=== PATIENT | male | born 2000 | race Caucasian/White ===

== ENCOUNTER 2019-10-21 16:18 | Emergency (ER) | payer OTHER, SELFPAY ==
[2019-10-21 16:26] VITALS: BP 108/56; PULSE 79; RESP 18; TEMP 36.1; O2SAT 99
--- NOTE | 2019-10-21 16:30 | ED.WOUNDLAC ---
HPI - Wound/Laceration General Chief Complaint: Wound/Laceration Stated Complaint: FINGER LACERATION Time Seen by Provider: 10/21/19 16:30 Source: patient and RN notes reviewed Mode of arrival: ambulatory Limitations: no limitations History of Present Illness HPI narrative: 19 male presents with concern for injury to the tip of the second digit of his right hand. 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 Reports he put clotting powder on the finger and after about 10 minutes the bleeding stopped. He denies musculoskeletal injury, pain. He last had a tetanus vaccine 6 years ago. Extremity Location: Right: hand Related Data Home Medications Medication Instructions Recorded Confirmed No Home Medications 10/21/19 10/21/19 Allergies Allergy/AdvReac Type Severity Reaction Status Date / Time Penicillins Allergy Unknown Rash Unverified 10/21/19 16:26 Review of Systems Review of Systems: Narrative: CONSTITUTIONAL: Denies malaise, chills, sweats, or fever. SKIN: Reports skin injury to the tip of the second digit of the right hand MUSCULOSKELETAL: Denies musculoskeletal pain NEUROLOGIC: Denies numbness, weakness. All systems reviewed & are unremarkable except as noted in HPI and below PMFSH Comments At time of signature, agree with nursing past medical, surgical, social and family history. There is no relevant family history pertinent to the presenting complaint Exam Narrative: Exam Narrative: GENERAL: Well-appearing, well-nourished, and in no acute distress. HEAD: Normocephalic, atraumatic. EYES: PERRLA, conjunctivae clear NECK: Supple. CHEST: Speaks in full sentences. No respiratory distress. HEART: Regular rate and rhythm. Normal and equal peripheral pulses. EXTREMITIES: Right second digit of hand have normal strength and sensation. 5/5 strength with digit flexion, extension. Range of motion normal. No clubbing, cyanosis, or edema noted. No tenderness. Normal digital cascade with flexion of fingers, median, ulnar and radial nerve intact. Normal sensation of each side of finger. Can perform 'okay' sign, 'cross over finger test of index and middle fingers' and 'thumbs up' sign. No scissoring. Normal thumb opposition. Good capillary refill and radial pulse. Distal capillary refill ?3 seconds. SKIN: Avulsion approximately 0.5 cm in diameter noted to the tip of the second digit of the right hand, slightly into the tip of the nailbed. Tissue bed is beefy red, no bleeding currently noted. No surrounding erythema, edema, induration NEURO: Alert and oriented x3. PSYCH: Normal mood and affect Course Course Emergency Course: Surgicel applied to wound to facilitate ongoing hemostasis, dressing applied. Patient is aware of diagnosis, understands and agrees to treatment plan. Anticipatory guidance given. Patient agrees to follow-up as directed and is aware of reasons to seek care at the emergency department. Portions of this record may have been created with voice recognition software Vital Signs Vital signs: Vital Signs Temperature 97.0 F L 10/21/19 16:26 Pulse Rate 79 10/21/19 16:26 Respiratory Rate 18 10/21/19 16:26 Blood Pressure 108/56 L 10/21/19 16:26 Pulse Oximetry 99 10/21/19 16:26 Temperature 97.0 F L 10/21/19 16:26 Pulse Rate 79 10/21/19 16:26 Respiratory Rate 18 10/21/19 16:26 Blood Pressure 108/56 L 10/21/19 16:26 Pulse Oximetry 99 10/21/19 16:26 Reviewed. MDM - Wound/Laceration MDM Narrative Medical decision making narrative: Exam findings show no acute concerns or changes; patient is non-toxic appearing and is in no distress. Patient is appropriate for outpatient treatment and follow-up. Differential Diagnosis Differential diagnosis: Likely laceration, abrasion and avulsion of skin Critical Care Time Critical Care Time Critical Care Time: No Discharge Plan Discharge Clinical Impression: Avulsion of skin Patient Disposition: Home, Self-Care Condition:
[2019-10-21] MEDS: TETANUS,DIPHTHERIA,AC PERTUSSIS ADULT (0.5 ML) BOOSTRIX IM (17:01)
== END 2019-10-21 17:15 | disposition home or self-care (01) ==
PROVIDERS: Emergency Provider Nurse Practitioner; PCP Pediatrics
DX: S61.200A Unspecified open wound of right index finger without damage to nail, initial encounter (principal); W29.0XXA Contact with powered kitchen appliance, initial encounter; Z23 Encounter for immunization
CPT/HCPCS: 90471; 90715; 99212; G0463

== ENCOUNTER → 2020-06-13 13:20 | Outpatient (CLI) | payer OTHER, SELFPAY ==
--- NOTE | ~2020-06-13 | XR_ITS ---
EXAMINATION: XR hand LT min 3V, XR wrist LT min 3V DATE: 06/13/2020 13:37 INDICATION: Left wrist trauma with pain at the ulnar side of the left wrist. TECHNIQUE: 1. Posteroanterior, ulnar deviation, oblique, and lateral views of the left wrist were obtained. 2. Dorsal palmar, oblique and lateral views of the left hand were obtained. COMPARISON: None. FINDINGS: Alignment of the left hand and wrist are normal. No fracture identified. Joint spaces are normal. C hronic erosions with sclerotic margins at the tip of the ulnar styloid process and at the dorsal radi al aspect of the head of the second metatarsal. No focal soft tissue swelling. IMPRESSION: 1. No acute osseous abnormality. 2. Chronic erosions of indeterminate etiology at the head of the left second metatarsal and tip of th e ulnar styloid process. Reviewed, dictated and finalized at location B. [facility] IMPRESSION: 1. No acute osseous abnormality. 2. Chronic erosions of indeterminate etiology at the head of the left second me tatarsal and tip of the ulnar styloid process.
== END ==
PROVIDERS: PCP Pediatrics; Visit Provider Pediatrics
DX: S69.92XA Unspecified injury of left wrist, hand and finger(s), initial encounter (principal)
CPT/HCPCS: 73110; 73130

== ENCOUNTER → 2020-07-15 13:08 | Outpatient (CLI) | payer OTHER, SELFPAY ==
--- NOTE | ~2020-07-15 | XR_ITS ---
EXAMINATION: XR fl inj wrist LT for MR/CT DATE: 07/15/2020 14:35 INDICATION: Ulnar-sided left wrist pain TECHNIQUE: A time-out was performed to verify the patient's name, date of , and procedure to b e performed. The procedure including the risks, benefits, and alternatives was discussed with the pat ient. Risks discussed included bleeding and infection. The patient understood the risks and agreed to proceed. The skin dorsal to the radioscaphoid articulation of the left wrist joint was prepped and draped in usual sterile fashion. Anesthetic was administered with 1% lidocaine subcutaneously. A 25 G needle was advanced under fluoroscopic guidance into the joint. Injection of 0.2 mL of Omnipaque 240 confirmed intra-articular position of the needle. Subsequently, injectate consisting of 3 mL of 2:1:1 mixture of sterile saline:Omnipaque 240:1% lidocaine mixed 200:1 with 529 mg/mL Multihance gado linium contrast was injected with intra-articular administration confirmed with intermittent fluorosc opy. A combined total of 1 mL of Omnipaque 240 was utilized. The needle was removed and the entry sit e was cleaned and dressed. There were no immediate complications. Fluoroscopy exposure time was 1.3 minutes. The total number of images was 134. FINDINGS: Real-time fluoroscopy demonstrates the needle in the left wrist joint. There is no evident extension of contrast into either the distal radioulnar joint to suggest a full-thickness tear of the triangular fibrocartilage complex or into the wrist joint to suggest a full-thickness tear of either the scapholunate or lunotriquetral ligaments. IMPRESSION: 1. Successful left wrist joint injection of dilute gadolinium contrast mixture which will be dictated separately. Reviewed, dictated and finalized at location A.
--- NOTE | ~2020-07-15 | MR_ITS ---
EXAMINATION: MR wrist LT w con DATE: 07/15/2020 15:07 INDICATION: Left wrist pain TECHNIQUE: Magnetic resonance imaging (MRI) of the left wrist was performed without intravenous contr ast. Sequences performed include axial PD-weighted FSE and PD-weighted FS FSE, coronal PD-weighted FS FSE and T1-weighted SE, and sagittal PD-weighted FS FSE and PD-weighted FSE. COMPARISON: None FINDINGS: Intrinsic ligaments: The scapholunate and lunotriquetral ligaments are normal. Triangular fibrocartilage complex (TFCC): There is small region of focal thinning and mild increased signal of less than fluid intensity and wi thout contrast enhancement along the radial side of the triangular fibrocartilage complex suggesting mild scarring related to a chronic partial tear near the radial attachment of the central fiber carti laginous disc of the triangular fiber cartilage complex. The foveal attachment is normal. There is a shallow concavity with smooth margins along the ulnar side of the distal articular surface of the tri angular fibrocartilage complex near its ulnar styloid attachment suggesting a chronic partial thickne ss tear. Again seen is an erosion along the radial aspect of the ulnar styloid process which is fille d with intermediate signal intensity noncontrast enhancing soft tissue. The ulnar collateral ligament and lunotriquetral ligament are normal. Extensor wrist: Extensor tendons of the wrist are normal. No tenosynovitis. Flexor wrist: The flexor tendons of the wrist are normal. No abnormality in the carpal tunnel with normal median n erve. Guyon's canal: Guyon's canal including the ulnar nerve and artery are normal. Bones/other: Normal marrow signal. No fracture, erosions, avascular necrosis or abnormal marrow replacing process. Joint spaces are normal with no focal cartilage defects appreciated. IMPRESSION: 1. Chronic partial tear involving the ulnar styloid attachment of the triangular fibrocartilage compl ex and mild attenuation and increased signal along the radial side of the central fibrocartilaginous disc of the triangular fibrocartilage complex which does not fill with contrast consistent with likel y scarring related to old healed partial tear. Reviewed, dictated and finalized at location A. IMPRESSION: 1. Chronic partial tear involving the ulnar styloid attachment of the triangula r fibrocartilage complex and mild attenuation and increased signal along the ra dial side of the central fibrocartilaginous disc of the triangular fibrocartila ge complex which does not fill with contrast consistent with likely scarring re lated to old healed partial tear.
== END ==
PROVIDERS: Visit Provider Orthopaedic Surgery
DX: M25.532 Pain in left wrist (principal)
CPT/HCPCS: 20605; 73222; 77002; A9577; Q9966

== ENCOUNTER 2022-02-22 09:49 | Outpatient (CLI) | payer OTHER, SELFPAY ==
--- NOTE | 2022-02-22 11:30 | NEURO_ITS ---
Impression: # History of numbness in left 4th and 5th digits. # Normal nerve conduction study. # Normal needle/EMG exam. # Clinical correlation recommended. Motor Nerve Conduction Upper Extremities Median Nerve Conduction Velocity (m/sec) Terminal Latency (msec) Response Voltage(mV) Elbow-Wrist Wrist Elbow Wrist Right Left 59 2.9 5 9 Ulnar Nerve Conduction Velocity (m/sec) Terminal Latency (msec) Response Voltage(mV) Above Elbow Below Elbow Wrist Above Elbow Below Elbow Wrist Right Left 59 60 2.2 6 6 8 F-Wave Latency Median (ms) Ulnar (ms) Right Left 27.7 27.9 Sensory Nerve Conduction Upper Extremities Median Nerve Stimulation Terminal Latency (msec) Wrist/Digit Response Voltage (uV) Wrist Right Left 3.1/2.9 41/54 Ulnar Nerve Stimulation Terminal Latency (msec) Wrist/Digit Response Voltage (uV) Wrist Right Left 2.5 55 Radial Nerve Terminal Latency (msec) Response Voltage(mV) Right Left 2.2 46 Left Right Muscles Examined Fibrillation Fasciculation Scarcity Voltage Duration Left Right Left Right Left Right Left Right Left Right Deltoid Biceps X Brachioradialis Triceps X Pronator Teres X Ext Indicis X Ext Digitorum X Abd Poll Brev X 1st Dorsal Interosseus Paraspinals MTDD
== END 2022-02-22 09:50 | disposition home or self-care (01) ==
PROVIDERS: PCP Internal Medicine Infectious Disease; Visit Provider Nurse Practitioner
DX: R20.2 Paresthesia of skin (principal)
CPT/HCPCS: 95886; 95909

== ENCOUNTER 2023-11-18 23:41 | Emergency (ER) | payer OTHER, SELFPAY ==
--- NOTE | ~2023-11-18 | XR_ITS ---
EXAM: XR hand LT min 3V DATE: 11/18/2023 23:55 HISTORY: middle finger injury . COMPARISON: X-ray left wrist 06/13/2020; MR left wrist 07/15/2020. FINDINGS: Normal mineralization. No fracture or dislocation. Anterior angulation of the third distal phalange. Eccentric, 4 mm, slightly scalloped, lytic lesion in the distal ulnar metaphysis with a na rrow zone of transition, without cortical breakthrough or periosteal change. In the absence of pain, prior trauma or history/signs of infection, this most likely represents a benign lesion such as encho ndroma, nonossifying fibroma, eosinophilic granuloma, a small aneurysmal bone cyst, and rarely chondr omyxoid fibroma. Infection (Sorin's abscess) cannot be excluded and this lesion is new since the [facility]. No lytic or blastic lesion. Joint spaces are maintained. No erosion or periosteal ch chaya. Soft tissues within normal limits. IMPRESSION: Mallet finger injury of the third DIP joint without evident fracture. 4 mm lytic lesion in the metaphysis of the distal ulna, without aggressive radiographic features, dif ferential discussed above. Correlate for pain/tenderness or history/signs of infection and if present , consider nonemergent but timely MRI without and with contrast. Otherwise consider radiographic foll ow-up in 6 months, or sooner if symptoms emerge. Reviewed, dictated and finalized at location K. IMPRESSION: Mallet finger injury of the third DIP joint without evident fracture. 4 mm lytic lesion in the metaphysis of the distal ulna, without aggressive radi ographic features, differential discussed above. Correlate for pain/tenderness or history/signs of infection and if present, consider nonemergent but timely M RI without and with contrast. Otherwise consider radiographic follow-up in 6 mo nths, or sooner if symptoms emerge.
[2023-11-18 23:42] VITALS: BP 132/74; PULSE 90; RESP 18; TEMP 36.7; O2SAT 99
--- NOTE | 2023-11-19 | PC.NURSE ---
pt ambulatory to imaging at this time.
--- NOTE | 2023-11-19 01:50 | ED.GENADULT ---
HPI - General Adult General Chief complaint: Extremity Injury, Upper Stated complaint: Left middle finger dislocation Time Seen by Provider: 11/19/23 01:44 Source: patient Mode of arrival: ambulatory Limitations: no limitations History of Present Illness HPI narrative: this is a 23-year-old male who presents to the ED for chief complaint of left middle finger injury during kickball tonight. Patient states that he went down day grab the ball and injured the distal tip of the middle finger. He grabbed a splint from [employer] prior to coming. states he was unsure if there was a fracture dislocation. denies any further sites of pain or injury. 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 MSK: LUE: mild deformity of the left middle finger. Minimal tenderness. No bruising. R UE: Benign SKIN: Warm, dry, no rash. NEURO: Alert and oriented x4. No focal deficits. PSYCH: Normal mood and affect. Course Vital Signs Vital signs: Vital Signs Temperature 98.1 F 11/18/23 23:42 Pulse Rate 90 11/18/23 23:42 Respiratory Rate 18 11/18/23 23:42 Blood Pressure 132/74 11/18/23 23:42 Pulse Oximetry 99 11/18/23 23:42 Oxygen Delivery Room Air 11/18/23 23:42 Temperature 98.1 F 11/18/23 23:42 Pulse Rate 90 11/18/23 23:42 Respiratory Rate 18 11/18/23 23:42 Blood Pressure 132/74 11/18/23 23:42 Pulse Oximetry 99 11/18/23 23:42 Oxygen Delivery Room Air 11/18/23 23:42 Medical Decision Making [facility] Narrative Medical decision making narrative: this is a 23-year-old male who presents to the ED for chief complaint of left middle finger deformity from injury while playing kickball today. Vitals are normal. Exam shows mild deformity of left middle finger DIP. left hand x-ray: IMPRESSION: Mallet finger injury of the third DIP joint without evident fracture. 4 mm lytic lesion in the metaphysis of the distal ulna, without aggressive radiographic features, differential discussed above. Correlate for pain/tenderness or history/signs of infection and if present, consider nonemergent but timely MRI without and with contrast. Otherwise consider radiographic follow-up in 6 months, or sooner if symptoms emerge.. Re-evaluated the patient is distal ulna as advised by above. patient is reporting a TFCC surgery in the past and is aware of this area of the ulna. Patient was placed in middle finger splint. Encouraged follow-up with hand specialist. Pt will be discharged in stable condition. Return precautions given and supportive measures discussed. Pt is understanding and agreeable with plan for discharge and follow-up with PCP/hand Vital Signs Vital Signs: Vital Signs Temperature 98.1 F 11/18/23 23:42 Pulse Rate 90 11/18/23 23:42 Respiratory Rate 18 11/18/23 23:42 Blood Pressure 1
[2023-11-19 03:08] VITALS: BP 126/68; PULSE 67; RESP 14; O2SAT 100
== END 2023-11-19 02:30 | disposition home or self-care (01) ==
PROVIDERS: Emergency Provider Physician Assistant; PCP Internal Medicine Infectious Disease
DX: M20.012 Mallet finger of left finger(s) (principal)
CPT/HCPCS: 73130; 99283